=== PATIENT | male | born 1960 | race Caucasian/White ===

== ENCOUNTER 2022-03-09 07:36 | Emergency (ER) | payer BC ==
[2022-03-09] VITALS (7 sets, daily range): BP systolic 101–123; BP diastolic 63–79
[~2022-03-09] VITALS: Ht 177.8 cm; Wt 84.1 kg
[2022-03-09] MEDS ORDERED: PROMETHAZI6.25 MG/5 PO (07:53)
[2022-03-09] MEDS ORDERED: FIORICET PO (07:53)
[2022-03-09] MEDS ORDERED: AMLOD/BENAZP1 CA3 PO (07:56)
[2022-03-09] MEDS ORDERED: NEXIUM40 MG PO (07:57)
[2022-03-09] MEDS ORDERED: BRILINTA90 MG PO (07:57)
[2022-03-09] MEDS ORDERED: ASPIRIN81 MG PO (07:58)
[2022-03-09] MEDS ORDERED: LIPITOR80 M1 PO (07:59)
[2022-03-09] MEDS ORDERED: DOXAZOSIN1 MG PO (08:00)
[2022-03-09] MEDS ORDERED: KLONOPIN1 MG PO (08:01)
[2022-03-09] MEDS ORDERED: METOPROLOL100 M1 PO (08:01)
[2022-03-09] MEDS ORDERED: MULTI VIT PO (08:02)
[2022-03-09] MEDS ORDERED: D32000 UNI1 PO (08:03)
[2022-03-09 08:21] LABS: HEMATOCRIT 37.9 % (39.0-50.0); HEMOGLOBIN 13.3 g/dl (14.0-18.0); IMMATURE GRANULOCYTES 0.4 % (0.0-5.0); MEAN CELL VOLUME 92.4 fL CALC (80.0-100.0); MEAN CORPUSCULAR HGB 32.4 pG CALC (26.0-32.0); MEAN CORPUSCULAR HGB CONC 35.1 g/dL CAL (32.0-36.0); NEUT# 2.61 thou/uL (1.82-7.42); RED BLOOD COUNT 4.1 mill/uL (4.70-6.10)
[2022-03-09 08:35] LABS: ALBUMIN 4.6 g/dL (3.2-5.0); ALKALINE PHOSPHATASE 77 u/l (38-126); ANION GAP 13 (6-22 (CALC)); BILIRUBIN, TOTAL 0.6 mg/dL (0.0-1.4); BUN 9 mg/dL (8-23); BUN/CREATININE RATIO 10 (12-20 (CALC)); CARBON DIOXIDE 27 mmol/l (22-30); CHLORIDE 96 mmol/l (95-108); CREATININE 0.8 mg/dL (0.7-1.3); GFR FOR AFR.AMER. > 60 ML/MIN (>=60 (CALC)); GFR OTHER RACES > 60 ML/MIN (>=60 (CALC)); POTASSIUM 3.7 mmol/l (3.5-5.1); SGOT/AST 87 u/l (19-48); SODIUM 132 mmol/l (137-146); TOTAL PROTEIN 7.7 g/dL (6.3-8.2)
[2022-03-09 08:39] LABS: URINE BILIRUBIN - DIPSTICK NEGATIVE (NEGATIVE); URINE BLOOD DIPSTICK NEGATIVE (NEGATIVE); URINE COLOR YELLOW; URINE GLUCOSE - DIPSTICK NEGATIVE (NEGATIVE); URINE KETONE NEGATIVE (NEGATIVE); URINE LEUK ESTERASE NEGATIVE (NEGATIVE); URINE PROTEIN - DIPSTICK NEGATIVE (NEG-TRACE); URINE UROBILINOGEN - DIPSTICK 0.2 E.U./dL (0.2)
[2022-03-09 08:40] LABS: URINE NITRITE - DIPSTICK NEGATIVE (Negative)
[2022-03-09] MEDS ORDERED: PAXLOVID PO (09:20)
== END 2022-03-09 10:32 | disposition home or self-care (01) | DRG 179 ==
LOC: ED 07:36
PROVIDERS: Emergency Medicine
DX: U07.1 COVID-19 (principal); R50.9 Fever, unspecified; J02.9 Acute pharyngitis, unspecified; R05.9 Cough, unspecified; R06.02 Shortness of breath; M79.10 Myalgia, unspecified site; I10 Essential (primary) hypertension; Z95.5 Presence of coronary angioplasty implant and graft